=== PATIENT | male | born 2000 | race African-American/Black ===

== ENCOUNTER → 2022-07-06 18:14 | Outpatient (CLI) | payer OTHER, SELFPAY ==
--- NOTE | 2022-07-06 18:17 | DI.MRI.S_ITS ---
PROCEDURE: MR HEAD/BRAIN WO/W CON INDICATIONS: Fasciculation TECHNIQUE: Noncontrast sagittal T1 spin echo, axial T2 fast spin echo, axial FLAIR, axial gradient echo, axial diffusion and ADC through the brain. Axial/sagittal/coronal 3-D CISS, thin-slice axial T1 spin echo with fat saturation through the skull base. After the administration of contrast, axial and coronal thin-slice T1 spin echo with fat saturation through the skull base, axial and coronal and sagittal T1 spin echo with fat saturation through the brain. COMPARISON: None. FINDINGS: Image quality: Excellent. Trigeminal nerves: The trigeminal nerves demonstrate a normal appearance, without masses or abnormal enhancement seen along their courses, including within the Meckel's caves. No significant abnormality can be seen of the other visualized cranial nerves. CSF spaces: Ventricles are normal in size and shape. No extra-axial fluid collections. Basal cisterns are patent. Brain: No intracranial bleeds or mass effects. No abnormal intracranial enhancement. Diffusion weighted images show no acute ischemic insults. [place]-white matter interface is intact. Brainstem is normal. Normal intravascular flow voids are present. Skull and face: Calvarial marrow signal is normal. Orbits appear normal. Sinuses: Sinuses and mastoids appear clear. IMPRESSION: No imaging explanation is found for this patient's presenting symptoms. No masses or abnormal enhancement can be seen. Dictated by: Tino Abdul M.D. on 07/06/2022 at 18:15 Approved by: Tino Abdul M.D. on 07/06/2022 at 18:16
== END ==
PROVIDERS: Referring Provider Student in an Organized Health Care Education/Training Program; Visit Provider Student in an Organized Health Care Education/Training Program
DX: R25.3 Fasciculation (principal)
CPT/HCPCS: 70553; A9579

== ENCOUNTER 2022-11-20 13:58 | Emergency (ER) | payer OTHER, SELFPAY ==
[2022-11-20 14:05] VITALS: BP 132/72; PULSE 76; RESP 16; TEMP 36.6; O2SAT 99; BMI 27.4
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
[2022-11-20] MEDS: KETOROLAC 30 MG/ML VIAL 15 MG IM (14:58)
== END 2022-11-20 15:14 | disposition home or self-care (01) ==
PROVIDERS: Emergency Provider Physician Assistant Medical
DX: S13.4XXA Sprain of ligaments of cervical spine, initial encounter (principal); M54.50 Low back pain, unspecified; V89.2XXA Person injured in unspecified motor-vehicle accident, traffic, initial encounter
CPT/HCPCS: 96372; 99283; J1885

== ENCOUNTER → 2023-07-29 10:54 | Outpatient (CLI) | payer OTHER, SELFPAY ==
[2023-07-29 12:06] LABS: Semen Sperm Prescence Post-Vas Absent (ABSENT)
== END ==
LOC: LAB 10:55
PROVIDERS: Referring Provider Specialist; Visit Provider Specialist
DX: Z98.52 Vasectomy status (principal)
CPT/HCPCS: 89321